=== PATIENT | male | born 1995 | race African-American/Black ===

== ENCOUNTER → 2017-01-18 | Outpatient (CLI) | payer MEDICARE, OTHER | LOC: EMI 13:45 | DX: R26.81 Unsteadiness on feet (principal); R90.89 Other abnormal findings on diagnostic imaging of central nervous system; M50.221 Other cervical disc displacement at C4-C5 level | CPT/HCPCS: 70551; 72141 ==

== ENCOUNTER → 2017-03-10 | Outpatient (CLI) | payer MEDICARE, OTHER | LOC: EMI 03-10 11:21 | DX: M51.36 Other intervertebral disc degeneration, lumbar region (principal); Q76.49 Other congenital malformations of spine, not associated with scoliosis; M99.73 Connective tissue and disc stenosis of intervertebral foramina of lumbar region; M99.74 Connective tissue and disc stenosis of intervertebral foramina of sacral region | CPT/HCPCS: 72148 ==